=== PATIENT | female | born 1940 | race Caucasian/White ===

== ENCOUNTER 2019-02-23 08:56 | Inpatient (IN) | payer OTHER ==
[~2019-02-23] VITALS: Ht 165.1 cm; Wt 73.9 kg
[~2019-02-23 08:56] MED LIST: HYDR12.5; LISI-209 PO; VERA100C4 PO
[2019-02-23 09:02] VITALS: BP_SYST 153
[2019-02-23] MEDS ORDERED: NS 500 ML IV ONE (09:15)
[2019-02-23 09:38] LABS: BASOPHILS % (AUTO) 0.2 % (0.0-2.0); HEMATOCRIT 44.7 % (36-48); HEMOGLOBIN 15.5 g/dL (12.0-16.0); LYMPHOCYTES # (AUTO) 0.4 K/uL (1.0-5.5); LYMPHOCYTES % (AUTO) 2.5 % (20.5-51.5); MEAN CORPUSCULAR HEMOGLOBIN 32 pg (27-31); MEAN CORPUSCULAR HGB CONC 35 % (32-36); MEAN CORPUSCULAR VOLUME 92 fL (79.0-98.0); MONOCYTES # (AUTO) 1.7 K/uL (0.0-1.0); MONOCYTES % (AUTO) 10.8 % (1.7-9.3); NEUTROPHILS # (AUTO) 13.9 K/uL (1.8-7.7); NEUTROPHILS % (AUTO) 86.5 % (40.0-70.0); PLATELET COUNT (AUTO) 198 K/uL (130-430); RED BLOOD CELL COUNT(AUTO) 4.84 MIL/uL (4.2-6.2); RED CELL DISTRIBUTION WIDTH 12.5 % (9.0-15.0); WHITE BLOOD COUNT (AUTO) 16.1 K/uL (4.8-10.8)
[2019-02-23 09:54] LABS: ANION GAP 12 (5-15); CALCIUM 9.1 mg/dL (8.4-11.0); CHLORIDE 95 mmol/L (98-107); CREATININE 1.33 mg/dL (0.55-1.30); GLUCOSE 214 mg/dL (70-99); POTASSIUM 3.1 mmol/L (3.5-5.1); SODIUM SERUM 130 mmol/L (136-145); UREA NITROGEN, BLOOD 32 mg/dL (8-21)
[2019-02-23 09:57] LABS: INR 1.1 (0.8-1.2); PROTHROMBIN TIME 10.7 SECS (9.5-12.5)
[2019-02-23 09:59] LABS: ALANINE AMINOTRANSFERASE 24 U/L (12-78); ALBUMIN 4.1 g/dL (3.4-4.8); ASPARTATE AMINOTRANSFERASE 42 U/L (10-37); TOTAL BILIRUBIN 2.7 mg/dL (0.0-1.0)
[2019-02-23 10:11] LABS: BILIRUBIN,URINE NEGATIVE (NEGATIVE); BLOOD, URINE 3+ (NEGATIVE); CLARITY/URINE CLEAR (CLEAR); COLOR,URINE YELLOW (YELLOW); GLUCOSE,URINE NEGATIVE (NEGATIVE); KETONES,URINE 2+ (NEGATIVE); LEUKOCYTE ESTERASE ,URINE 1+ (NEGATIVE); NITRITE, URINE POSITIVE (NEGATIVE); PROTEIN URINE 2+ (NEGATIVE); UROBILINOGEN,URINE 0.2 (0.2-1.0)
[2019-02-23] MEDS ORDERED: POTASSIUM CHLORIDE 10 MEQ TAB.PRT.SR PO ONE (10:15)
[2019-02-23] MEDS ORDERED: NACL 0.9% 2,000 ML IV ONE (10:15)
[2019-02-23 10:21] LABS: BACTERIA,URINE MANY /HPF (None Seen); COARSE GRANULAR CASTS,URINE 0-10 /LPF (None Seen)
[2019-02-23] MEDS ORDERED: ASPIRIN 81 MG TAB.CHEW PO ONE (10:30)
[2019-02-23] MEDS ORDERED: LEVOFLOXACIN 500 MG/D5W 100 ML IV ONE (10:30)
[2019-02-23] MEDS ORDERED: ENOXAPARIN SODIUM 80 MG/0.8 ML SYRINGE SUBCUT ONE (10:30)
[2019-02-23 11:13] VITALS: BP_SYST 136
[2019-02-23] MEDS ORDERED: FLU VACC TS2019(65UP)/MF59C/PF 45 MCG/0.5 ML SYRINGE I.M. PRN (11:30)
[2019-02-23] MEDS ORDERED: METOPROLOL TARTRATE 25 MG TABLET PO ONE (12:00)
[2019-02-23 12:45] VITALS: BP_SYST 136
[2019-02-23] MEDS ORDERED: *HEPARIN PER PHARMACY XX ONE (12:45)
[2019-02-23] MEDS ORDERED: ASPIRIN 325 MG TABLET (ECOTRIN) PO ONE (12:45)
[2019-02-23] MEDS ORDERED: HEPARIN SODIUM,PORCINE 5000 UNITS/ML VIAL IVP ONE (13:00)
[2019-02-23] MEDS ORDERED: HEPARIN SODIUM,PORCINE 3000 UNITS/0.6 ML BOLUS IVP PRN (13:00)
[2019-02-23] MEDS ORDERED: HEPARIN SODIUM,PORCINE 2000 UNITS/0.4 ML BOLUS IVP PRN (13:00)
[2019-02-23] MEDS: NACL 0.9% 1,000 ML IV SCH (13:20)
[2019-02-23] MEDS: HEPARIN 25,000 UNITS in 250 ML PREMIX IV PRN (13:45)
[2019-02-23 15:39] LABS: CKMB RELATIVE INDEX 0.6 (0.0-2.9); CREATINE KINASE MB 8.7 ng/mL (0-3.6)
[2019-02-23 16:35] VITALS: BP_SYST 137
[2019-02-23 19:37] LABS: BASOPHILS % (AUTO) 0.2 % (0.0-2.0); HEMATOCRIT 42.1 % (36-48); HEMOGLOBIN 14.7 g/dL (12.0-16.0); LYMPHOCYTES # (AUTO) 0.5 K/uL (1.0-5.5); LYMPHOCYTES % (AUTO) 2.6 % (20.5-51.5); MEAN CORPUSCULAR HEMOGLOBIN 33 pg (27-31); MEAN CORPUSCULAR HGB CONC 35 % (32-36); MEAN CORPUSCULAR VOLUME 93 fL (79.0-98.0); MONOCYTES # (AUTO) 1.8 K/uL (0.0-1.0); MONOCYTES % (AUTO) 9.5 % (1.7-9.3); NEUTROPHILS # (AUTO) 16.9 K/uL (1.8-7.7); PLATELET COUNT (AUTO) 187 K/uL (130-430); RED BLOOD CELL COUNT(AUTO) 4.53 MIL/uL (4.2-6.2); RED CELL DISTRIBUTION WIDTH 12.6 % (9.0-15.0); WHITE BLOOD COUNT (AUTO) 19.2 K/uL (4.8-10.8)
[2019-02-23 19:57] VITALS: BP_SYST 138
[2019-02-23 20:09] LABS: ALANINE AMINOTRANSFERASE 23 U/L (12-78); ALBUMIN 3.2 g/dL (3.4-4.8); ANION GAP 8 (5-15); ASPARTATE AMINOTRANSFERASE 50 U/L (10-37); CHLORIDE 101 mmol/L (98-107); CREATININE 1.13 mg/dL (0.55-1.30); GLUCOSE 166 mg/dL (70-99); POTASSIUM 3.2 mmol/L (3.5-5.1); SODIUM SERUM 133 mmol/L (136-145); TOTAL BILIRUBIN 2.4 mg/dL (0.0-1.0); UREA NITROGEN, BLOOD 30 mg/dL (8-21)
[2019-02-23 20:21] LABS: NEUTROPHILS % (AUTO) 87.7 % (40.0-70.0)
[2019-02-23] MEDS: METOPROLOL TARTRATE 25 MG TABLET PO SCH (21:23)
[2019-02-23] MEDS ORDERED: BIMA2.5D5 OP (23:33)
[2019-02-24 06:33] LABS: BASOPHILS % (AUTO) 0.1 % (0.0-2.0); HEMATOCRIT 40.3 % (36-48); HEMOGLOBIN 13.9 g/dL (12.0-16.0); LYMPHOCYTES # (AUTO) 0.4 K/uL (1.0-5.5); LYMPHOCYTES % (AUTO) 2.3 % (20.5-51.5); MEAN CORPUSCULAR HEMOGLOBIN 32 pg (27-31); MEAN CORPUSCULAR HGB CONC 35 % (32-36); MEAN CORPUSCULAR VOLUME 94 fL (79.0-98.0); MONOCYTES # (AUTO) 1.6 K/uL (0.0-1.0); MONOCYTES % (AUTO) 9.4 % (1.7-9.3); NEUTROPHILS # (AUTO) 15.1 K/uL (1.8-7.7); NEUTROPHILS % (AUTO) 88.2 % (40.0-70.0); PLATELET COUNT (AUTO) 171 K/uL (130-430); RED BLOOD CELL COUNT(AUTO) 4.29 MIL/uL (4.2-6.2); RED CELL DISTRIBUTION WIDTH 12.7 % (9.0-15.0); WHITE BLOOD COUNT (AUTO) 17.2 K/uL (4.8-10.8)
[2019-02-24 07:09] LABS: ANION GAP 12 (5-15); CALCIUM 8.8 mg/dL (8.4-11.0); CHLORIDE 102 mmol/L (98-107); CREATININE 1.13 mg/dL (0.55-1.30); GLUCOSE 145 mg/dL (70-99); SODIUM SERUM 137 mmol/L (136-145); UREA NITROGEN, BLOOD 29 mg/dL (8-21)
[2019-02-24 07:19] LABS: ALANINE AMINOTRANSFERASE 26 U/L (12-78); ASPARTATE AMINOTRANSFERASE 55 U/L (10-37); TOTAL BILIRUBIN 1.6 mg/dL (0.0-1.0)
[2019-02-24] MEDS: ASPIRIN 325 MG TABLET (ECOTRIN) PO SCH (08:28)
[2019-02-24] MEDS: NACL 0.9% 1,000 ML IV SCH ×2 (08:34→12:54)
[2019-02-24] MEDS: METOPROLOL TARTRATE 25 MG TABLET PO SCH ×2 (08:34→20:28)
[2019-02-24] MEDS ORDERED: VERAPAMIL HCL 100 MG PO SCH (09:00)
[2019-02-24] MEDS ORDERED: IOHEXOL 350 mgI/mL, 150 ML INFUS..BTL IV ONE (11:13)
[2019-02-24] MEDS ORDERED: POTASSIUM CHLORIDE 20 MEQ TAB.PRT.SR PO ONE (11:30)
[2019-02-24] MEDS ORDERED: PIPERACILLIN/TAZO 3.375/DEX-IS 50 ML IV ONE (11:30)
[2019-02-24 12:22] VITALS: BP_SYST 141
[2019-02-24] MEDS: HEPARIN 25,000 UNITS in 250 ML PREMIX IV PRN (12:58)
[2019-02-24] MEDS ORDERED: ALBUTEROL SULFATE 0.083% 2.5 MG/3 ML VIAL.NEB INH PRN (13:15)
[2019-02-24] MEDS: ACETAMINOPHEN 325 MG TABLET PO PRN (14:17)
[2019-02-24 16:30] VITALS: BP_SYST 100
[2019-02-24] MEDS: PIPERACILLIN/TAZO 2.25G/DEX-IS 50 ML IV SCH (16:58)
[2019-02-24 20:00] VITALS: BP_SYST 94
[2019-02-24] MEDS: LUMIGAN 0.01% OP SCH (20:29)
[2019-02-24] MEDS ORDERED: BIMATOPROST 0.01%, 2.5 ML EYE DROPS OP SCH (21:00)
[2019-02-25] VITALS (7 sets, daily range): BP systolic 114–140
[2019-02-25] MEDS: PIPERACILLIN/TAZO 2.25G/DEX-IS 50 ML IV SCH ×3 (00:12→15:59)
[2019-02-25 05:52] LABS: ALANINE AMINOTRANSFERASE 99 U/L (12-78); ALBUMIN 2.8 g/dL (3.4-4.8); ANION GAP 10 (5-15); ASPARTATE AMINOTRANSFERASE 102 U/L (10-37); CALCIUM 8.6 mg/dL (8.4-11.0); CHLORIDE 107 mmol/L (98-107); CREATININE 1.12 mg/dL (0.55-1.30); GLUCOSE 141 mg/dL (70-99); POTASSIUM 3.4 mmol/L (3.5-5.1); SODIUM SERUM 141 mmol/L (136-145); TOTAL BILIRUBIN 1.2 mg/dL (0.0-1.0); UREA NITROGEN, BLOOD 29 mg/dL (8-21)
[2019-02-25 06:28] LABS: BASOPHILS % (AUTO) 0.1 % (0.0-2.0); EOSINOPHILS % (AUTO) 0.1 % (0.0-4.0); HEMATOCRIT 36.3 % (36-48); HEMOGLOBIN 12.6 g/dL (12.0-16.0); LYMPHOCYTES # (AUTO) 0.4 K/uL (1.0-5.5); LYMPHOCYTES % (AUTO) 3.6 % (20.5-51.5); MEAN CORPUSCULAR HEMOGLOBIN 33 pg (27-31); MEAN CORPUSCULAR HGB CONC 35 % (32-36); MEAN CORPUSCULAR VOLUME 94 fL (79.0-98.0); MONOCYTES # (AUTO) 0.9 K/uL (0.0-1.0); MONOCYTES % (AUTO) 7.1 % (1.7-9.3); NEUTROPHILS # (AUTO) 10.7 K/uL (1.8-7.7); NEUTROPHILS % (AUTO) 89.1 % (40.0-70.0); PLATELET COUNT (AUTO) 155 K/uL (130-430); RED BLOOD CELL COUNT(AUTO) 3.86 MIL/uL (4.2-6.2); RED CELL DISTRIBUTION WIDTH 12.8 % (9.0-15.0)
[2019-02-25] MEDS: ASPIRIN 325 MG TABLET (ECOTRIN) PO SCH (09:05)
[2019-02-25] MEDS: METOPROLOL TARTRATE 25 MG TABLET PO SCH (09:06)
[2019-02-25] MEDS: ACETAMINOPHEN 325 MG TABLET PO PRN (09:16)
[2019-02-25] MEDS ORDERED: KCL 20 mEq in 100 mL (PREMIX) 100 ML IV ONE (10:00)
[2019-02-25] MEDS ORDERED: ENOXAPARIN SODIUM 40 MG/0.4 ML SYRINGE SUBCUT ONE (11:15)
[2019-02-25] MEDS: NACL 0.9% 1,000 ML IV SCH (16:00)
[2019-02-25] MEDS: HYDROcodone/ACETAMIN 5-325 MG TAB (NORCO/ VICODIN) PO PRN (16:17)
[2019-02-25] MEDS: LUMIGAN 0.01% OP SCH (21:00)
[2019-02-26 01:23] VITALS: BP_SYST 139
[2019-02-26] MEDS: PIPERACILLIN/TAZO 2.25G/DEX-IS 50 ML IV SCH ×5 (03:35→18:36)
[2019-02-26] MEDS: METOPROLOL TARTRATE 25 MG TABLET PO SCH ×3 (03:38→22:06)
[2019-02-26] MEDS: NACL 0.9% 1,000 ML IV SCH ×2 (03:41→05:00)
[2019-02-26 08:00] VITALS: BP_SYST 130
[2019-02-26] MEDS ORDERED: ENOXAPARIN SODIUM 40 MG/0.4 ML SYRINGE SUBCUT SCH (09:00)
[2019-02-26] MEDS ORDERED: ASPIRIN 325 MG TABLET (ECOTRIN) PO SCH (09:00)
[2019-02-26 11:57] VITALS: BP_SYST 129
[2019-02-26] MEDS ORDERED: POTASSIUM CHLORIDE 40 MEQ in NS 250 ML IV ONE (14:30)
[2019-02-26 16:51] VITALS: BP_SYST 137
[2019-02-26 20:06] VITALS: BP_SYST 149
[2019-02-26] MEDS: HYDROcodone/ACETAMIN 5-325 MG TAB (NORCO/ VICODIN) PO PRN ×2 (22:02→22:04)
[2019-02-26] MEDS: LUMIGAN 0.01% OP SCH (22:07)
[2019-02-27] VITALS (7 sets, daily range): BP systolic 125–151
[2019-02-27] MEDS: PIPERACILLIN/TAZO 2.25G/DEX-IS 50 ML IV SCH ×5 (06:13→22:59)
[2019-02-27 07:54] LABS: BASOPHILS % (AUTO) 0.2 % (0.0-2.0); EOSINOPHILS % (AUTO) 0.1 % (0.0-4.0); HEMATOCRIT 37.8 % (36-48); HEMOGLOBIN 12.9 g/dL (12.0-16.0); LYMPHOCYTES # (AUTO) 0.7 K/uL (1.0-5.5); LYMPHOCYTES % (AUTO) 8.1 % (20.5-51.5); MEAN CORPUSCULAR HEMOGLOBIN 33 pg (27-31); MEAN CORPUSCULAR HGB CONC 34 % (32-36); MEAN CORPUSCULAR VOLUME 96 fL (79.0-98.0); MONOCYTES # (AUTO) 0.7 K/uL (0.0-1.0); MONOCYTES % (AUTO) 8.4 % (1.7-9.3); NEUTROPHILS # (AUTO) 7.5 K/uL (1.8-7.7); NEUTROPHILS % (AUTO) 83.2 % (40.0-70.0); PLATELET COUNT (AUTO) 187 K/uL (130-430); RED BLOOD CELL COUNT(AUTO) 3.93 MIL/uL (4.2-6.2); RED CELL DISTRIBUTION WIDTH 12.8 % (9.0-15.0); WHITE BLOOD COUNT (AUTO) 8.9 K/uL (4.8-10.8)
[2019-02-27] MEDS: METOPROLOL TARTRATE 25 MG TABLET PO SCH ×2 (08:22→21:00)
[2019-02-27 09:20] LABS: ANION GAP 11 (5-15); CALCIUM 8.7 mg/dL (8.4-11.0); CHLORIDE 108 mmol/L (98-107); CREATININE 1.14 mg/dL (0.55-1.30); GLUCOSE 115 mg/dL (70-99); POTASSIUM 3.8 mmol/L (3.5-5.1); SODIUM SERUM 142 mmol/L (136-145); UREA NITROGEN, BLOOD 27 mg/dL (8-21)
[2019-02-27 09:27] LABS: ALANINE AMINOTRANSFERASE 115 U/L (12-78); ASPARTATE AMINOTRANSFERASE 49 U/L (10-37); TOTAL BILIRUBIN 1.2 mg/dL (0.0-1.0)
[2019-02-27] MEDS: NACL 0.9% 1,000 ML IV SCH (17:12)
[2019-02-27] MEDS: LUMIGAN 0.01% OP SCH (21:00)
[2019-02-28] VITALS (7 sets, daily range): BP systolic 118–144
[2019-02-28 05:59] LABS: BASOPHILS % (AUTO) 0.1 % (0.0-2.0); EOSINOPHILS # (AUTO) 0.1 K/uL (0.0-0.4); EOSINOPHILS % (AUTO) 0.8 % (0.0-4.0); HEMATOCRIT 36.9 % (36-48); HEMOGLOBIN 12.7 g/dL (12.0-16.0); LYMPHOCYTES # (AUTO) 1.1 K/uL (1.0-5.5); LYMPHOCYTES % (AUTO) 13.3 % (20.5-51.5); MEAN CORPUSCULAR HEMOGLOBIN 33 pg (27-31); MEAN CORPUSCULAR HGB CONC 34 % (32-36); MEAN CORPUSCULAR VOLUME 95 fL (79.0-98.0); MONOCYTES # (AUTO) 1.1 K/uL (0.0-1.0); MONOCYTES % (AUTO) 12.7 % (1.7-9.3); NEUTROPHILS # (AUTO) 6.2 K/uL (1.8-7.7); NEUTROPHILS % (AUTO) 73.1 % (40.0-70.0); PLATELET COUNT (AUTO) 189 K/uL (130-430); RED BLOOD CELL COUNT(AUTO) 3.88 MIL/uL (4.2-6.2); RED CELL DISTRIBUTION WIDTH 12.4 % (9.0-15.0); WHITE BLOOD COUNT (AUTO) 8.5 K/uL (4.8-10.8)
[2019-02-28] MEDS: PIPERACILLIN/TAZO 2.25G/DEX-IS 50 ML IV SCH ×4 (06:18→23:30)
[2019-02-28 06:34] LABS: PROTHROMBIN TIME 10.4 SECS (9.5-12.5)
[2019-02-28 06:57] LABS: ALANINE AMINOTRANSFERASE 86 U/L (12-78); ALBUMIN 2.6 g/dL (3.4-4.8); ANION GAP 8 (5-15); ASPARTATE AMINOTRANSFERASE 29 U/L (10-37); CALCIUM 8.1 mg/dL (8.4-11.0); CHLORIDE 106 mmol/L (98-107); CREATININE 1.08 mg/dL (0.55-1.30); GLUCOSE 106 mg/dL (70-99); POTASSIUM 3.6 mmol/L (3.5-5.1); SODIUM SERUM 141 mmol/L (136-145); TOTAL BILIRUBIN 0.8 mg/dL (0.0-1.0); UREA NITROGEN, BLOOD 26 mg/dL (8-21)
[2019-02-28] MEDS: METOPROLOL TARTRATE 25 MG TABLET PO SCH ×2 (08:19→22:13)
[2019-02-28] MEDS: ATORVASTATIN 20 MG TABLET PO SCH (08:20)
[2019-02-28] MEDS: HYDROcodone/ACETAMIN 5-325 MG TAB (NORCO/ VICODIN) PO PRN ×2 (08:23→16:01)
[2019-02-28] MEDS: NACL 0.9% 1,000 ML IV SCH (16:02)
[2019-02-28] MEDS: LUMIGAN 0.01% OP SCH (22:16)
[2019-03-01 00:32] VITALS: BP_SYST 146
[2019-03-01] MEDS: PIPERACILLIN/TAZO 2.25G/DEX-IS 50 ML IV SCH (05:34)
[2019-03-01 06:53] VITALS: BP_SYST 126
[2019-03-01 10:00] VITALS: BP_SYST 136
[2019-03-01] MEDS: METOPROLOL TARTRATE 25 MG TABLET PO SCH ×2 (10:01→21:58)
[2019-03-01] MEDS: ATORVASTATIN 20 MG TABLET PO SCH (10:02)
[2019-03-01] MEDS: NACL 0.9% 1,000 ML IV SCH (11:30)
[2019-03-01 12:40] VITALS: BP_SYST 128
[2019-03-01 16:20] VITALS: BP_SYST 133
[2019-03-01 20:00] VITALS: BP_SYST 136
[2019-03-01] MEDS: LUMIGAN 0.01% OP SCH (22:02)
[2019-03-02] MEDS: HYDROcodone/ACETAMIN 5-325 MG TAB (NORCO/ VICODIN) PO PRN (00:54)
[2019-03-02] MEDS: NACL 0.9% 1,000 ML IV SCH (00:55)
[2019-03-02 02:42] VITALS: BP_SYST 122
[2019-03-02 08:03] VITALS: BP_SYST 136
[2019-03-02] MEDS: ATORVASTATIN 20 MG TABLET PO SCH (09:40)
[2019-03-02] MEDS: METOPROLOL TARTRATE 25 MG TABLET PO SCH (09:42)
[2019-03-02] MEDS ORDERED: GADOPENTETATE DIMEGLUMINE 15 ML VIAL IV ONE (10:39)
[2019-03-02 12:27] VITALS: BP_SYST 130
[2019-03-02] MEDS: ACETAMINOPHEN 325 MG TABLET PO PRN (13:06)
[2019-03-02 16:38] VITALS: BP_SYST 125
[2019-03-02 17:38] VITALS: BP_SYST 125
== END 2019-03-02 19:45 | DRG 871 ==
LOC: SED 08:56 → STU 10:36
PROVIDERS: ADMIT Internal Medicine Hospice and Palliative Medicine; ATTEND Internal Medicine Hospice and Palliative Medicine
DX: A41.9 Sepsis, unspecified organism (principal); J96.01 Acute respiratory failure with hypoxia; I61.5 Nontraumatic intracerebral hemorrhage, intraventricular; I21.4 Non-ST elevation (NSTEMI) myocardial infarction; N39.0 Urinary tract infection, site not specified; E87.1 Hypo-osmolality and hyponatremia; G93.40 Encephalopathy, unspecified; M62.82 Rhabdomyolysis; E78.5 Hyperlipidemia, unspecified; E87.6 Hypokalemia; F17.210 Nicotine dependence, cigarettes, uncomplicated; I10 Essential (primary) hypertension; J44.9 Chronic obstructive pulmonary disease, unspecified; Z96.652 Presence of left artificial knee joint; G89.29 Other chronic pain; M54.9 Dorsalgia, unspecified; Z96.643 Presence of artificial hip joint, bilateral; B96.20 Unspecified Escherichia coli [E. coli] as the cause of diseases classified elsewhere; Z90.710 Acquired absence of both cervix and uterus; Z86.718 Personal history of other venous thrombosis and embolism; Z86.711 Personal history of pulmonary embolism; Z79.899 Other long term (current) drug therapy
CPT/HCPCS: 36415; 36600; 70450-TC; 70551; 70553; 71045; 71260-TC; 78580-TC; 80053; 81000-TC; 82550-TC; 82553-TC; 82803-TC; 83605; 84484; 85025; 85610-TC; 85730-TC; 87040-TC; 87086; 87186-TC; 92610-GN; 93005; 93306; 93970; 94640; 95816; 96361; 96365; 97110-GP; 97116-GP; 97530-GP; 99285; A9540; A9579; G0378; J1644; J1650; J1956; J2543; J3480; J7030; J7040; J7050; J7613; Q9967

== ENCOUNTER 2019-04-15 14:45 | Inpatient (IN) | payer OTHER ==
[~2019-04-15] VITALS: Ht 170.2 cm; Wt 68.9 kg
[2019-04-15 14:45] VITALS: BP_SYST 128
[~2019-04-15 14:45] MED LIST changes: +BIMA2.5D5 OP; -HYDR12.5; -LISI-209 PO; -VERA100C4 PO
--- NOTE | 2019-04-15 14:45 | NUR ---
Patient to ER bed 3 to gown for evaluation. Side rails up.
--- NOTE | 2019-04-15 14:50 | NUR ---
Pt brought to ER with complaints of lower abd pain and lower extremity swelling. Pt currently in bed comfortable, no distress, on ekg monitor.
--- NOTE | 2019-04-15 15:00 | NUR ---
ER at bedside examining patient.
[2019-04-15 15:23] LABS: BASOPHILS % (AUTO) 0.6 % (0.0-2.0); EOSINOPHILS # (AUTO) 0.1 K/uL (0.0-0.4); EOSINOPHILS % (AUTO) 0.7 % (0.0-4.0); HEMATOCRIT 36.7 % (36-48); HEMOGLOBIN 12.6 g/dL (12.0-16.0); LYMPHOCYTES # (AUTO) 0.8 K/uL (1.0-5.5); LYMPHOCYTES % (AUTO) 10.9 % (20.5-51.5); MEAN CORPUSCULAR HEMOGLOBIN 33 pg (27-31); MEAN CORPUSCULAR HGB CONC 34 % (32-36); MEAN CORPUSCULAR VOLUME 95 fL (79.0-98.0); MONOCYTES # (AUTO) 0.6 K/uL (0.0-1.0); MONOCYTES % (AUTO) 8.2 % (1.7-9.3); NEUTROPHILS # (AUTO) 5.9 K/uL (1.8-7.7); NEUTROPHILS % (AUTO) 79.6 % (40.0-70.0); PLATELET COUNT (AUTO) 371 K/uL (130-430); RED BLOOD CELL COUNT(AUTO) 3.87 MIL/uL (4.2-6.2); RED CELL DISTRIBUTION WIDTH 14.6 % (9.0-15.0); WHITE BLOOD COUNT (AUTO) 7.4 K/uL (4.8-10.8)
--- NOTE | 2019-04-15 15:25 | NUR ---
EKG performed at BS. Physician given copy of EKG for review.
--- NOTE | 2019-04-15 15:30 | NUR ---
Chest xray completed at bedside
[2019-04-15 15:37] LABS: INR 0.9 (0.8-1.2); PROTHROMBIN TIME 9.5 SECS (9.5-12.5)
[2019-04-15 15:45] LABS: ANION GAP 5 (5-15); CALCIUM 8.8 mg/dL (8.4-11.0); CHLORIDE 92 mmol/L (98-107); CREATININE 0.59 mg/dL (0.55-1.30); GLUCOSE 102 mg/dL (70-99); SODIUM SERUM 128 mmol/L (136-145); UREA NITROGEN, BLOOD 11 mg/dL (8-21)
[2019-04-15 15:51] LABS: ALANINE AMINOTRANSFERASE 80 U/L (12-78); ALBUMIN 2.9 g/dL (3.4-4.8); ASPARTATE AMINOTRANSFERASE 26 U/L (10-37); TOTAL BILIRUBIN 0.8 mg/dL (0.0-1.0)
--- NOTE | 2019-04-15 17:00 | NUR ---
# 20 gauge angiocath placed to RAC Use of asceptic technique. Opsite placed over site. Blood return noted. Blood for lab drawn from site. Flushed with 10 cc of normal saline. No evidence of infiltration noted. Patient tolerated well.
--- NOTE | 2019-04-15 17:01 | NUR ---
2nd lactic acid collected and sent to lab
--- NOTE | 2019-04-15 17:15 | NUR ---
Urine specimen collected via straight cath and analyzed in ER. Results given to ER .
[2019-04-15] MEDS ORDERED: TRAM-350 PO (17:47)
[2019-04-15] MEDS ORDERED: BIMA2.5D5 OP (17:47)
[2019-04-15] MEDS ORDERED: OMEP20CA11 PO (17:47)
[2019-04-15] MEDS ORDERED: LIP40 PO (17:47)
--- NOTE | 2019-04-15 18:30 | NUR ---
currently waiting for a Med Surg bed.
[2019-04-15] MEDS ORDERED: ENOXAPARIN SODIUM 80 MG/0.8 ML SYRINGE SUBCUT ONE ×3 (19:00→19:30)
--- NOTE | 2019-04-15 19:15 | NUR ---
report given to Jefry NAVARRO.
--- NOTE | 2019-04-15 20:00 | NUR ---
Pt resting comfortably in ED bed. Pt family left bedside.
[2019-04-15] MEDS ORDERED: *LOVENOX 1MG/KG Q12H/PHARMACY XX SCH (21:00)
--- NOTE | 2019-04-15 21:00 | NUR ---
Patient will be admitted to care of / [facility]. Admitted to Med/Surg unit. Will go to room 102B. Belongings list completed. Complete and up to date summary report printed. SBAR report to be given at bedside with opportunity for questions.
--- NOTE | 2019-04-15 21:00 | NUR ---
Report Given to MELANIE Fields
--- NOTE | 2019-04-15 21:00 | NUR ---
[facility] IV present no sign or symptom of infiltration.
--- NOTE | 2019-04-15 21:30 | NUR ---
ADMISSION: The patient, DION HANNA, 78 y/o, F admitted by RAFAEL MAGAÑA MD, with diagnosis of dvt on LLE.
[2019-04-15 21:45] VITALS: BP_SYST 139
--- NOTE | 2019-04-15 21:52 | NUR ---
ADMISSION NOTES: called ER and got report from nurse Capps. pt. was brought in prior to report, charge nurse Nneka received pt. pt. awake, alert but disoriented when checked. VS checked. HS care being given by IRENA Scanlon. pt. able to help turn to sides and move her arm and leg. pt. left leg swollen with DX DVT and also c/o abdominal pain due to constipation, reported had CT of abdomen and have large amts. of stool. IV lock opn rt. arm. on fall risk precautions. call light within reach. noted coccyx/anal area reddened, Z ana cream applied. unable to get information at his time, will check medical records, son already went home from ER.
--- NOTE | 2019-04-15 23:19 | NUR ---
NOTES; pt. sleeping when checked. no acute distress.
--- NOTE | 2019-04-15 23:32 | NUR ---
Carly Wynne s/w Saloni
[2019-04-15] MEDS ORDERED: ONDANSETRON HCL 4 MG/2 ML VIAL IVP PRN (23:45)
[2019-04-15] MEDS ORDERED: ALBUTEROL SULFATE 0.083% 2.5 MG/3 ML VIAL.NEB INH PRN (23:45)
[2019-04-15] MEDS ORDERED: HYDROcodone/ACETAMIN 10-325 MG TAB PO PRN (23:45)
[2019-04-15] MEDS ORDERED: ACETAMINOPHEN 325 MG TABLET PO PRN (23:45)
[2019-04-15] MEDS ORDERED: HYDROcodone/ACETAMIN 5-325 MG TAB (NORCO/ VICODIN) PO PRN (23:45)
[2019-04-15 23:49] VITALS: BP_SYST 102
[2019-04-16] VITALS: BP_SYST 120
[2019-04-16] MEDS ORDERED: POTASSIUM CHLORIDE 20 MEQ TAB.PRT.SR PO ONE ×2 (00:15)
--- NOTE | 2019-04-16 00:15 | NUR ---
NOTES: Dr. Wynne returned the call, made her aware of low Sodium and low Potassium (3.0) only ordered Potassium, no IVF.
--- NOTE | 2019-04-16 02:00 | NUR ---
NOTES: pt. awakened, and potassium givewn with apple sauce and tolerated fairly, went back to sleep.
--- NOTE | 2019-04-16 04:30 | NUR ---
NOTES: pt. repositioned. no complaints noted, back to sleep. continue to monitor.
--- NOTE | 2019-04-16 06:00 | NUR ---
NOTES: awakened, incontinent of urine, partial am and eusebia care done. repositioned. IV lock on rt. antecubital. some pain noted on left leg when move, keep elevated with pillow. fall risk precautions, bed alarm on.
--- NOTE | 2019-04-16 06:57 | NUR ---
CLOSING NOTES; pt. went back to sleep. no acute distress. IV lock intact. left leg elevated with pillow. needs attended. on fall risk precautions, bed alarm on. for further care and assistance. call light within reach. remain disoriented. will endorase to day shift
[2019-04-16 07:21] LABS: BASOPHILS # (AUTO) 0.1 K/uL (0.0-0.2); EOSINOPHILS # (AUTO) 0.1 K/uL (0.0-0.4); EOSINOPHILS % (AUTO) 1.2 % (0.0-4.0); HEMATOCRIT 33.6 % (36-48); HEMOGLOBIN 11.7 g/dL (12.0-16.0); LYMPHOCYTES # (AUTO) 0.8 K/uL (1.0-5.5); LYMPHOCYTES % (AUTO) 14.8 % (20.5-51.5); MEAN CORPUSCULAR HEMOGLOBIN 33 pg (27-31); MEAN CORPUSCULAR HGB CONC 35 % (32-36); MEAN CORPUSCULAR VOLUME 95 fL (79.0-98.0); MONOCYTES # (AUTO) 0.7 K/uL (0.0-1.0); MONOCYTES % (AUTO) 11.6 % (1.7-9.3); NEUTROPHILS % (AUTO) 71.4 % (40.0-70.0); PLATELET COUNT (AUTO) 334 K/uL (130-430); RED BLOOD CELL COUNT(AUTO) 3.54 MIL/uL (4.2-6.2); RED CELL DISTRIBUTION WIDTH 14.8 % (9.0-15.0); WHITE BLOOD COUNT (AUTO) 5.6 K/uL (4.8-10.8)
--- NOTE | 2019-04-16 07:50 | NUR ---
Nurse Notes: report from the night nurse Sabine Ratliff RN, patient is resting in bed. No complaints of pain given, No complaints of any shortness of breath.
[2019-04-16 08:17] LABS: ALANINE AMINOTRANSFERASE 63 U/L (12-78); ALBUMIN 2.6 g/dL (3.4-4.8); ANION GAP 5 (5-15); ASPARTATE AMINOTRANSFERASE 20 U/L (10-37); CALCIUM 8.9 mg/dL (8.4-11.0); CHLORIDE 98 mmol/L (98-107); CREATININE 0.67 mg/dL (0.55-1.30); GLUCOSE 96 mg/dL (70-99); POTASSIUM 3.5 mmol/L (3.5-5.1); SODIUM SERUM 134 mmol/L (136-145); TOTAL BILIRUBIN 0.7 mg/dL (0.0-1.0); UREA NITROGEN, BLOOD 10 mg/dL (8-21)
[2019-04-16 08:48] VITALS: BP_SYST 129
[2019-04-16] MEDS ORDERED: BIMATOPROST 0.01%, 2.5 ML EYE DROPS OP SCH (09:00)
[2019-04-16] MEDS ORDERED: LATANOPROST 2.5 ML DROPS (XALATAN) OP SCH (09:00)
[2019-04-16] MEDS ORDERED: ENOXAPARIN SODIUM 80 MG/0.8 ML SYRINGE SUBCUT SCH ×2 (09:00)
--- NOTE | 2019-04-16 09:32 | NUR ---
Nurse Notes: Dr Hicks was called with elevated troponin 0.173, will reach sash installer Dr Tyrell Snowden, for consult. Addendum: 04/16/19 at 1337 by Linda children's aide charted on the wrong patient.
[2019-04-16] MEDS: PANTOPRAZOLE SODIUM 40 MG TAB PO SCH (10:42)
--- NOTE | 2019-04-16 10:51 | NUR ---
Nutrition Update Jethro Scale 15 noted. Pt admitted for DVT. Diet: cardiac BMI: 24 kg/m2 RD to follow per nutrition care standards.
[2019-04-16 11:16] VITALS: BP_SYST 124
--- NOTE | 2019-04-16 13:48 | NUR ---
Nurse Notes: pharmacy was called, if the lovenox 1mg/kg, should the dose be 70 mg, 80 mg was given earlier. chemical waste management technician to notified the pharmacist.
[2019-04-16 15:19] VITALS: BP_SYST 117
--- NOTE | 2019-04-16 19:40 | NUR ---
Nurse Notes: report given to the night nurse Roland NAVARRO, Patient is resting in bed. No complaints of any shortness of breath. No request for pain medications.
--- NOTE | 2019-04-16 20:00 | NUR ---
Pt awake, alert, pleasant upon approach and cooperative. Resting in bed w left leg on pillow. L Leg swollen.
[2019-04-16] MEDS: ATORVASTATIN 20 MG TABLET PO SCH (21:14)
[2019-04-16] MEDS: ENOXAPARIN SODIUM 80 MG/0.8 ML SYRINGE SUBCUT SCH (21:38)
--- NOTE | 2019-04-16 22:00 | NUR ---
pt cooperative w treatment regimen.
[2019-04-16] MEDS: LATANOPROST 2.5 ML DROPS (XALATAN) OP SCH (23:37)
--- NOTE | 2019-04-17 00:03 | NUR ---
Pt c/o pain to L Lower Extremity. Pt medicated as per EMar.
--- NOTE | 2019-04-17 00:30 | NUR ---
Pain mgt effective. pt relieve of pain. No adverse s/sx. pt resting comfortably.
[2019-04-17 00:44] VITALS: BP_SYST 111
--- NOTE | 2019-04-17 02:00 | NUR ---
pt cont to be w/o c/o pain or discomfort. pt sleeping well. call light in reach.
--- NOTE | 2019-04-17 07:30 | NUR ---
Opening note patient resting in bed at this time, A/ox2, no complaints of pain. IV patent, and intact, no infiltration noted. No SOB. left leg kept elevated using pillows. On safety and aspiration precautions, HOB kept elevated, 3 side rails up, call light within reach, bed alarm on. Patient in stable condition. will continue to monitor.
[2019-04-17 08:00] VITALS: BP_SYST 131
[2019-04-17] MEDS: PANTOPRAZOLE SODIUM 40 MG TAB PO SCH (08:20)
[2019-04-17] MEDS: ENOXAPARIN SODIUM 80 MG/0.8 ML SYRINGE SUBCUT SCH ×2 (08:25→22:17)
--- NOTE | 2019-04-17 09:00 | NUR ---
Medications All morning medications given as ordered. no adverse side effects noted. No nausea, no vomiting.
[2019-04-17 11:22] VITALS: BP_SYST 106
[2019-04-17] MEDS: cefTRIAXone 1 GM in D5W 50 ML IV SCH (12:09)
--- NOTE | 2019-04-17 12:21 | NUR ---
Lunch patient sitting up in bed at this time, eating lunch, tolerating well. No nausea, no vomiting noted.
--- NOTE | 2019-04-17 14:05 | NUR ---
IV pulled out. Patient pulled out IV. unable to start IV at this time. Will attempt again at a lter time.
[2019-04-17 15:10] VITALS: BP_SYST 121
--- NOTE | 2019-04-17 15:50 | NUR ---
new IV site New IV inserted on left hand gauge 22. IV patent, intact. no infiltration noted.
--- NOTE | 2019-04-17 18:04 | NUR ---
closing note Patient resting in bed at this time, A/ox2, no complaints of pain. IV patent, and intact, no infiltration noted. No SOB. left leg kept elevated using pillows. Reminded patient we need urine sample. Patient verbalized understanding. will endorse to shift boss. On safety and aspiration precautions, HOB kept elevated, 3 side rails up, call light within reach, bed alarm on. Patient in stable condition. all needs met.
--- NOTE | 2019-04-17 19:30 | NUR ---
start of shift note: report received from day shift RN. pt condition stable. pt awake, alert, confused. pt ate her ice cream, milk, some coffee. remainder of meal appears untouched. pt incontinent and uses diapers.
[2019-04-17] MEDS: ATORVASTATIN 20 MG TABLET PO SCH (22:21)
[2019-04-17] MEDS: LATANOPROST 2.5 ML DROPS (XALATAN) OP SCH (22:21)
--- NOTE | 2019-04-17 22:48 | NUR ---
pt alert, cooperative, and in no apparent distress. pt compliant with medication regimen.
[2019-04-18 00:18] VITALS: BP_SYST 126
[2019-04-18 07:44] LABS: BASOPHILS # (AUTO) 0.1 K/uL (0.0-0.2); BASOPHILS % (AUTO) 1.3 % (0.0-2.0); EOSINOPHILS # (AUTO) 0.1 K/uL (0.0-0.4); EOSINOPHILS % (AUTO) 1.9 % (0.0-4.0); HEMATOCRIT 32.2 % (36-48); HEMOGLOBIN 11.3 g/dL (12.0-16.0); MEAN CORPUSCULAR HEMOGLOBIN 34 pg (27-31); MEAN CORPUSCULAR HGB CONC 35 % (32-36); MEAN CORPUSCULAR VOLUME 96 fL (79.0-98.0); MONOCYTES # (AUTO) 0.5 K/uL (0.0-1.0); MONOCYTES % (AUTO) 11.9 % (1.7-9.3); NEUTROPHILS # (AUTO) 2.6 K/uL (1.8-7.7); NEUTROPHILS % (AUTO) 61.9 % (40.0-70.0); PLATELET COUNT (AUTO) 323 K/uL (130-430); RED BLOOD CELL COUNT(AUTO) 3.36 MIL/uL (4.2-6.2); RED CELL DISTRIBUTION WIDTH 15.4 % (9.0-15.0); WHITE BLOOD COUNT (AUTO) 4.2 K/uL (4.8-10.8)
[2019-04-18 08:00] VITALS: BP_SYST 132
[2019-04-18 08:00] LABS: ALANINE AMINOTRANSFERASE 50 U/L (12-78); ALBUMIN 2.5 g/dL (3.4-4.8); ANION GAP 5 (5-15); ASPARTATE AMINOTRANSFERASE 24 U/L (10-37); CALCIUM 8.4 mg/dL (8.4-11.0); CHLORIDE 97 mmol/L (98-107); CREATININE 0.66 mg/dL (0.55-1.30); GLUCOSE 98 mg/dL (70-99); POTASSIUM 3.6 mmol/L (3.5-5.1); SODIUM SERUM 132 mmol/L (136-145); TOTAL BILIRUBIN 0.7 mg/dL (0.0-1.0); UREA NITROGEN, BLOOD 9 mg/dL (8-21)
[2019-04-18] MEDS: LACTULOSE 20 GM/30 ML UDC PO SCH (09:00)
--- NOTE | 2019-04-18 09:15 | NUR ---
Medications All morning medications given as ordered. No adverse side effects noted.
[2019-04-18] MEDS: PANTOPRAZOLE SODIUM 40 MG TAB PO SCH (09:25)
[2019-04-18] MEDS: cefTRIAXone 1 GM in D5W 50 ML IV SCH (09:25)
[2019-04-18] MEDS: ASPIRIN 81 MG TAB.CHEW PO SCH (09:26)
[2019-04-18] MEDS: ENOXAPARIN SODIUM 80 MG/0.8 ML SYRINGE SUBCUT SCH (09:35)
[2019-04-18 11:20] VITALS: BP_SYST 136
--- NOTE | 2019-04-18 11:30 | NUR ---
Bowel movement Offered patient bed raymond for urine sample. Patient noted with bowel movement, unable to get urine sample. Skin care provided. Linens changed, no other needs at this time.
--- NOTE | 2019-04-18 13:00 | NUR ---
UA Urine sample taken via straight cath. Urine sample collected and sent to lab. Skin care provided. patient in stable condition.
[2019-04-18 13:58] LABS: BILIRUBIN,URINE NEGATIVE (NEGATIVE); BLOOD, URINE NEGATIVE (NEGATIVE); COLOR,URINE YELLOW (YELLOW); GLUCOSE,URINE NEGATIVE (NEGATIVE); KETONES,URINE NEGATIVE (NEGATIVE); NITRITE, URINE NEGATIVE (NEGATIVE); PROTEIN URINE NEGATIVE (NEGATIVE)
[2019-04-18 14:09] LABS: CLARITY/URINE HAZY (CLEAR); LEUKOCYTE ESTERASE ,URINE 2+ (NEGATIVE)
[2019-04-18 14:10] LABS: RBC,URINE NONE SEEN /HPF (0-3)
[2019-04-18 14:11] LABS: BACTERIA,URINE FEW /HPF (None Seen); MUCUS,URINE None Seen /LPF (None Seen); WBC,URINE 20-50 /HPF (0-3)
--- NOTE | 2019-04-18 14:40 | NUR ---
Rounds Patient resting in bed at this time, no complaints of pain. IV patent, and intact. No infiltration noted. Patient noted with incontinence of urine. linens changed, skin care provided.
[2019-04-18 15:42] VITALS: BP_SYST 139
--- NOTE | 2019-04-18 16:17 | NUR ---
Rounds patient resting in bed at this time, noted with incontinence of urine. Skin care provided, linens changed. No other needs at this time.
[2019-04-18] MEDS: RIVAROXABAN 15 MG TABLET PO SCH (17:42)
--- NOTE | 2019-04-18 18:01 | NUR ---
closing note patient sitting up in bed at this time, eating dinner. visitor at bedside. no complaints of pain. IV patent, and intact, no infiltration noted. No SOB. left leg kept elevated using pillows. On safety and aspiration precautions, HOB kept elevated, 3 side rails up, call light within reach, bed alarm on. Patient in stable condition. All needs met.
[2019-04-18] MEDS: LATANOPROST 2.5 ML DROPS (XALATAN) OP SCH (21:57)
[2019-04-18] MEDS: ATORVASTATIN 20 MG TABLET PO SCH (21:57)
[2019-04-18 23:27] VITALS: BP_SYST 135
[2019-04-19 01:13] VITALS: BP_SYST 134
[2019-04-19 08:00] VITALS: BP_SYST 119
--- NOTE | 2019-04-19 08:00 | NUR ---
NOTE Pt sitting up in bed eating her breakfast. No SOB/resp distress or pain/discomfort noted at this time. Pt's IV in left forearm intact and patent infusing IVF's well. No needs noted at this time. Call light within reach.
[2019-04-19 08:05] LABS: ALANINE AMINOTRANSFERASE 71 U/L (12-78); ALBUMIN 2.7 g/dL (3.4-4.8); ANION GAP 4 (5-15); ASPARTATE AMINOTRANSFERASE 47 U/L (10-37); CALCIUM 8.8 mg/dL (8.4-11.0); CHLORIDE 101 mmol/L (98-107); CREATININE 0.69 mg/dL (0.55-1.30); GLUCOSE 98 mg/dL (70-99); SODIUM SERUM 133 mmol/L (136-145); TOTAL BILIRUBIN 0.6 mg/dL (0.0-1.0); UREA NITROGEN, BLOOD 8 mg/dL (8-21)
[2019-04-19] MEDS: cefTRIAXone 1 GM in D5W 50 ML IV SCH (08:38)
[2019-04-19] MEDS: ASPIRIN 81 MG TAB.CHEW PO SCH (08:40)
[2019-04-19] MEDS: PANTOPRAZOLE SODIUM 40 MG TAB PO SCH (08:40)
[2019-04-19] MEDS: LACTULOSE 20 GM/30 ML UDC PO SCH (08:40)
[2019-04-19 08:42] LABS: BASOPHILS # (AUTO) 0.1 K/uL (0.0-0.2); BASOPHILS % (AUTO) 1.4 % (0.0-2.0); EOSINOPHILS # (AUTO) 0.1 K/uL (0.0-0.4); EOSINOPHILS % (AUTO) 1.8 % (0.0-4.0); HEMATOCRIT 35.7 % (36-48); HEMOGLOBIN 12.1 g/dL (12.0-16.0); LYMPHOCYTES % (AUTO) 24.7 % (20.5-51.5); MEAN CORPUSCULAR HEMOGLOBIN 33 pg (27-31); MEAN CORPUSCULAR HGB CONC 34 % (32-36); MEAN CORPUSCULAR VOLUME 97 fL (79.0-98.0); MONOCYTES # (AUTO) 0.5 K/uL (0.0-1.0); MONOCYTES % (AUTO) 13.1 % (1.7-9.3); NEUTROPHILS # (AUTO) 2.3 K/uL (1.8-7.7); PLATELET COUNT (AUTO) 357 K/uL (130-430); RED BLOOD CELL COUNT(AUTO) 3.69 MIL/uL (4.2-6.2); RED CELL DISTRIBUTION WIDTH 15.6 % (9.0-15.0)
--- NOTE | 2019-04-19 10:05 | NUR ---
CONSULTATION PAGED REASON FOR CONSULTATION:CONFUSION WAS CONSULT CALLED?Y PERSON WHO WAS NOTIFIED:LOTTIE CONSULTING PHYSICIAN:DUANE GAVIN SIGNAL MANAGER SPECIALTY:NEURO SIGNAL MANAGER PHONE NUMBER:[phone] REQUESTING PHYSICIAN:RAFAEL SANDERS
--- NOTE | 2019-04-19 10:30 | NUR ---
Note Dr Reagan at bedside and for CT head/brain w/o contrast ordered at 1010am. Pt at this time taken down to CT dept for scan of head/brain, IVF's saline locked.
[2019-04-19 11:21] VITALS: BP_SYST 129
--- NOTE | 2019-04-19 14:00 | NUR ---
Note Pt back in room after CT scan at 11am. Dr Rosenberg (neuro) came to pt's bedside for assessment. Pt resting in bed and denies any needs at this time. Call light within reach.
[2019-04-19 15:40] VITALS: BP_SYST 122
[2019-04-19] MEDS: RIVAROXABAN 15 MG TABLET PO SCH (17:20)
--- NOTE | 2019-04-19 18:50 | NUR ---
Note Pt's son at bedside visiting, instructed to take pt's [place] ID home at this time. Pt denies any SOB/resp distress or pain/discomfort noted at this time. Pt was checked on q1' and PRN all shift for needs and care. IV in left forearm intact and patent at this time. heels were elevated on pillow at this time. Pt denies any needs at this time. Call light within reach.
--- NOTE | 2019-04-19 19:15 | NUR ---
OPENING NOTES Receive report from morning shift nurse. Patient AOx2, forgetfulness and confusion is noted. Patient has no signs of respiratory distress noted. HOB slightly elevated. Denies pain and discomfort at this time. IV site, patency noted. Call light within reach. Safety precautions in place. Bed alarm on. Heels elevated with pillow. Will continue to monitor patient.
[2019-04-19 20:05] VITALS: BP_SYST 128
[2019-04-19] MEDS: ATORVASTATIN 20 MG TABLET PO SCH (21:04)
[2019-04-19] MEDS: LATANOPROST 2.5 ML DROPS (XALATAN) OP SCH (21:04)
--- NOTE | 2019-04-19 21:04 | NUR ---
MED PASS Due medication given at this time. Patient tolerated well. Patient has no signs of respiratory distress and discomfort noted. Safety precautions in place. Bed alarm on. Will continue to monitor patient.
--- NOTE | 2019-04-19 23:38 | NUR ---
RN ROUNDS Patient awake, watching TV. Patient denies pain and discomfort. No signs of respiratory distress noted. Repositioned Q2H for comfort. Safety precautions in place. Will continue to monitor patient.
[2019-04-20] VITALS: BP_SYST 128
--- NOTE | 2019-04-20 02:14 | NUR ---
RN ROUNDS Patient asleep at this time. No signs of respiratory distress and discomfort noted. Breathing even and unlabored. Safety precautions in place. Call light within reach, Will continue to monitor patient.
--- NOTE | 2019-04-20 06:40 | NUR ---
PERICARE/CLOSING NOTES Patient is awake AOX2, watching TV, no signs of respiratory distress noted. Patient denies pain and discomfort at this time. Pericare done at this time, patient tolerated well. IV site patency noted. Heels floated using pillow. Safety precautions in place. Bed alarm on. Call light within reach. All needs met throughout the shift. Will continue to monitor until endorsed to oncoming shift nurse.
[2019-04-20 08:00] VITALS: BP_SYST 141
--- NOTE | 2019-04-20 08:00 | NUR ---
Note Pt sitting up in bed eating her breakfast. No SOB/resp distress or pain/discomfort noted a this time. IV in left forearm intact and patent at this time. No needs noted at this time. Call light within reach.
[2019-04-20] MEDS: ASPIRIN 81 MG TAB.CHEW PO SCH (08:19)
[2019-04-20] MEDS: cefTRIAXone 1 GM in D5W 50 ML IV SCH (08:19)
[2019-04-20] MEDS: LACTULOSE 20 GM/30 ML UDC PO SCH (08:19)
[2019-04-20] MEDS: PANTOPRAZOLE SODIUM 40 MG TAB PO SCH (08:19)
--- NOTE | 2019-04-20 09:00 | NUR ---
Note Dr Reagan on the floor and assessment completed at this time. Call light within reach.
[2019-04-20 11:14] VITALS: BP_SYST 146
--- NOTE | 2019-04-20 12:25 | NUR ---
Note Pt resting in bed and now assisted sitting up in bed for lunch at this time. Pt denies any needs at this time. Call light within reach.
[2019-04-20 15:38] VITALS: BP_SYST 135
--- NOTE | 2019-04-20 16:30 | NUR ---
Note Pt was notified that there is an order for transfer to SNF when bed is available. Pt denies any needs noted at this time. Call light within reach
--- NOTE | 2019-04-20 16:43 | NUR ---
Dietitian Recommendations * Recommend cardiac diet w/ Ensure Enlive BID (ONS provides 700 kcal/day, 40 gm protein/day) * Encourage increase PO intakes LP, RD Please refer to Nutrition Assessment for details. Addendum: 04/20/19 at [address] Amended: Links added.
[2019-04-20 16:45] VITALS: BP_SYST 146
[2019-04-20] MEDS: RIVAROXABAN 15 MG TABLET PO SCH (18:18)
--- NOTE | 2019-04-20 18:55 | NUR ---
Note Pt's son came up to nurses' station and verified that pt will possibly be transferred on Friday/ as bed is available. Pt was checked on q1' and PRN all shift for needs and care. No SOB/resp distress or pain/discomfort was noted all shift. Pt sitting up for dinner, denies any needs at this time. IV in left forearm intact and patent. Call light within reach.
--- NOTE | 2019-04-20 19:10 | NUR ---
OPENING NOTES/REFUSED FLU VACCINE Receive report from morning shift nurse. Patient AOx2, Son at bedside. Patient has no signs of respiratory distress noted. HOB slightly elevated. Patient was aske for flu vaccine, patient refused flu vaccine, son agreed. Patient and son was educated on purpose and benefits of flu vaccine, still refused at this time. Patient denies pain and discomfort at this time. IV site, patency noted. Call light within reach. Safety precautions in place. Bed alarm on. Heels elevated with pillow. Will continue to monitor patient.
[2019-04-20] MEDS: ATORVASTATIN 20 MG TABLET PO SCH (23:07)
[2019-04-20] MEDS: LATANOPROST 2.5 ML DROPS (XALATAN) OP SCH (23:07)
--- NOTE | 2019-04-20 23:07 | NUR ---
MED PASS/PERICARE Due medication given at this time. Patient tolerated well. Patient has no signs of respiratory distress and discomfort noted. Pericare done with help of Rafael OSBORN. Safety precautions in place. Bed alarm on. Will continue to monitor patient.
[2019-04-21 01:32] VITALS: BP_SYST 129
--- NOTE | 2019-04-21 03:55 | NUR ---
RN ROUNDS Patient asleep at this time. No signs of respiratory distress and discomfort noted. Breathing even and unlabored. Safety precautions in place. Call light within reach. Will continue to monitor patient.
--- NOTE | 2019-04-21 06:24 | NUR ---
CLOSING NOTES Patient is asleep at this time, no signs of respiratory distress and discomfort noted at this time. IV site patency noted. Heels floated using pillow. Safety precautions in place. Bed alarm on. Call light within reach. All needs met throughout the shift. Will continue to monitor until endorsed to oncoming shift nurse.
--- NOTE | 2019-04-21 07:30 | NUR ---
AM rounds: Patient is awake, oriented. Denies pain. On contact isolation for MRSA of nares. Bilateral heels off loaded with pillows. Call light within reach.
[2019-04-21 08:09] VITALS: BP_SYST 139
[2019-04-21] MEDS: ASPIRIN 81 MG TAB.CHEW PO SCH (08:12)
[2019-04-21] MEDS: PANTOPRAZOLE SODIUM 40 MG TAB PO SCH (08:12)
[2019-04-21] MEDS: LACTULOSE 20 GM/30 ML UDC PO SCH (08:13)
[2019-04-21] MEDS: cefTRIAXone 1 GM in D5W 50 ML IV SCH (08:13)
--- NOTE | 2019-04-21 11:00 | NUR ---
Rounds: Patient's son Kamron at bedside. NO questions and concerns at this time. Patient is comfortable.
[2019-04-21 11:13] VITALS: BP_SYST 138
[2019-04-21] MEDS ORDERED: RIVA15TA PO (11:45)
--- NOTE | 2019-04-21 13:44 | NUR ---
CONVENTIONAL MACHINIST HCP AFTER HOURS ATTEMPTED TO CALL TO FOLLOW UP PLACEMENT FOR PATIENT TO SNF. ON MULTIPLE ATTEMPTS, CALLS ARE BEING HUNGED UP ON
[2019-04-21 14:59] VITALS: BP_SYST 106
--- NOTE | 2019-04-21 15:00 | NUR ---
Rounds: Patient is resting. No discomfort at this time.
[2019-04-21] MEDS: RIVAROXABAN 15 MG TABLET PO SCH (17:19)
--- NOTE | 2019-04-21 18:12 | NUR ---
End of shift: Needs attended. No change in assessment.
--- NOTE | 2019-04-21 19:10 | NUR ---
OPENING NOTES Receive report from morning shift nurse MELANIE Prakash. Patient has no signs of respiratory distress noted. HOB slightly elevated. PPatient denies pain and discomfort at this time. IV site, patency noted. Call light within reach. Safety precautions in place. Bed locked and lowest position. Bed alarm on. Heels elevated with pillow. Will continue to monitor patient.
[2019-04-21 19:54] VITALS: BP_SYST 139
[2019-04-21] MEDS: LATANOPROST 2.5 ML DROPS (XALATAN) OP SCH (21:29)
[2019-04-21] MEDS: ATORVASTATIN 20 MG TABLET PO SCH (21:29)
[2019-04-21 21:40] VITALS: BP_SYST 130
[2019-04-22 00:25] VITALS: BP_SYST 114
--- NOTE | 2019-04-22 06:47 | NUR ---
CLOSING NOTES Patient is awake watching TV, no signs of respiratory distress and discomfort noted at this time. IV site patency noted. Heels floated using pillow. Safety precautions in place. Bed alarm on. Call light within reach. All needs met throughout the shift. Will continue to monitor until endorsed to oncoming shift nurse.
[2019-04-22 08:06] VITALS: BP_SYST 129
[2019-04-22] MEDS: LACTULOSE 20 GM/30 ML UDC PO SCH (09:38)
[2019-04-22] MEDS: cefTRIAXone 1 GM in D5W 50 ML IV SCH (09:38)
[2019-04-22] MEDS: PANTOPRAZOLE SODIUM 40 MG TAB PO SCH (09:38)
[2019-04-22] MEDS: ASPIRIN 81 MG TAB.CHEW PO SCH (09:38)
[2019-04-22] MEDS ORDERED: LINEZOLID 300 ML IV ONE (11:00)
--- NOTE | 2019-04-22 11:47 | NUR ---
PATIENT WALKED W/ P.T. JILL FROM BED DOOR AND BACK. PT C/O OF PAIN AND WAS GIVEN PAIN MED AFTER. IV ZYVOX GIVEN.
--- NOTE | 2019-04-22 11:50 | NUR ---
PER P.T. PT IS MAX ASSIST OOB/AMBULATION
[2019-04-22 12:00] VITALS: BP_SYST 108
[2019-04-22 17:09] VITALS: BP_SYST 107
[2019-04-22] MEDS: RIVAROXABAN 15 MG TABLET PO SCH (17:25)
--- NOTE | 2019-04-22 19:00 | NUR ---
CLOSING NOTES, PT HAS BEEN STABLE THE WHOLE SHIFT, GIVEN ABX, PAIN MEDICATIONS REQUESTED, PT AMBULATED WITH P.T. BUT IS TOTAL ASSIST WITH OOB AND AMBULATION. ENDORSED TO NIGHT NURSE.
[2019-04-22 20:00] VITALS: BP_SYST 125
[2019-04-22] MEDS: LATANOPROST 2.5 ML DROPS (XALATAN) OP SCH (20:42)
[2019-04-22] MEDS: ATORVASTATIN 20 MG TABLET PO SCH (20:43)
[2019-04-22] MEDS: LINEZOLID 300 ML IV SCH (20:47)
[2019-04-23 00:06] VITALS: BP_SYST 107
--- NOTE | 2019-04-23 07:30 | NUR ---
closing notes Patient is resting, no signs of acute respiratory distress obesrved. IV site patent, dressings c/d/i. Call light wtihin reach, bed alarm on, bed at lowest position. All needs met throughout shift. Will endorse care to oncoming shift.
[2019-04-23] MEDS: cefTRIAXone 1 GM in D5W 50 ML IV SCH (09:00)
[2019-04-23] MEDS: PANTOPRAZOLE SODIUM 40 MG TAB PO SCH (09:00)
[2019-04-23] MEDS: LINEZOLID 300 ML IV SCH ×2 (09:00→21:24)
[2019-04-23] MEDS: LACTULOSE 20 GM/30 ML UDC PO SCH (09:00)
[2019-04-23] MEDS: ASPIRIN 81 MG TAB.CHEW PO SCH (09:00)
[2019-04-23 10:45] VITALS: BP_SYST 107
[2019-04-23 11:11] VITALS: BP_SYST 118
--- NOTE | 2019-04-23 14:21 | NUR ---
DC Planning: Assisting Antonella,director to speak with pt for dcp to [facility]. >> The pt lives at [facility] on second level. She was independly able to walk with cane and FWW. The pt came to ER complaining of left leg swelling and pain. She has h/o CVA and tremor and weakness associated with her deep venous thrombosis on the left leg. >> CM informed pt the dcp to [place] for IV abx for UTI and DVT management. The pt agreed with the transfer to [facility]. reuben Valenzuela made aware, she agreed with the POC and transfer [facility]. --Antonella made aware. Addendum: 04/23/19 at 1442 by Bibi Bey RN Error entryPlease disregard the above info.-- RASHARD NAVARRO /REINA
--- NOTE | 2019-04-23 14:42 | NUR ---
DC Planning: Assisting Antonella,director to speak with pt for dcp to [facility]. >> CM informed pt the dcp to [place] for IV abx for VRE of Urine and DVT management. The pt agreed with the transfer to [facility]. >> Informed son/Kamron Dhaliwal # [phone]. He agreed with the POC and to transfer to [facility] possible today.
[2019-04-23 16:12] VITALS: BP_SYST 131
--- NOTE | 2019-04-23 18:13 | NUR ---
Nutrition F/U RD reviewed pt's current EMR record including diet Hx, physician notes, nursing notes, pertinent labs/meds/procedures, care trends, and care activity. Admission Dx: DVT PMH: CVA, HTN per physician notes Current Diet Order/Nutrition Support: Cardiac w/ Ensure Enlive BID x2 days Subjective Info: Pt seen resting in bed, reported she has been eating fine. Per EMR records, PO intakes indicate 38% average x7 meals. RD encouraged pt to continue to increase PO intakes for adequate nutrition. Pt stated she is enjoying chocolate-flavored Ensure Enlive ONS. Per physician notes, awaiting placement. Estimated Energy Expenditure (kcals/day) 3240-8149 kcal/day (25-30 kcal/kg CBW for geriatric maintenance) Estimated Protein Required (g/day) 69-83 gm/day (1-1.2 gm/kg CBW for geriatric maintenance) Estimated Fluid Required (l/day) 1.8-2 L/day (1 ml/kcal/day for maintenance) Problem/Etiology/Signs/Symptoms Inadequate nutritional intakes related to lack of appetite as evidenced by poor PO intake records. *ongoing Expected Outcomes/Goals - Monitor appetite and PO intakes w/ goal of pt meeting at least 75% of estimated nutritional needs, labs trending WNL, normal GI function, and skin integrity/wt maintenance Dietitian Recommendations * Recommend continuing cardiac diet w/ Ensure Enlive BID (ONS provides 700 kcal/day, 40 gm protein/day) * Encourage increase PO intakes Follow Up High Risk: F/U in 2-3 days
--- NOTE | 2019-04-23 18:15 | NUR ---
Dietitian Recommendations * Recommend continuing cardiac diet w/ Ensure Enlive BID (ONS provides 700 kcal/day, 40 gm protein/day) * Encourage increase PO intakes LP, RD Please refer to Nutrition F/U for details.
--- NOTE | 2019-04-23 19:10 | NUR ---
OPENING NOTES Late entry due to patient care. Bedside report received from dayshift nurse. Patient received lying in bed, awake, watching TV, confused. No s/s of acute distress noted. Breathing is even and unlabored. HOB raised. IV site is patent, no signs of infiltration or infection noted. Call light with patient. Bed alarm on. Bed is locked and at lowest position. Will continue to monitor.
[2019-04-23] MEDS: RIVAROXABAN 15 MG TABLET PO SCH (19:42)
[2019-04-23 20:00] VITALS: BP_SYST 125
--- NOTE | 2019-04-23 21:00 | NUR ---
INCONTINENT CARE Incontinent care done by RN at this time. Patient tolerated well. All needs met at this time. Call light with patient. Bed alarm on. Will continue to monitor.
[2019-04-23] MEDS: LATANOPROST 2.5 ML DROPS (XALATAN) OP SCH (21:24)
[2019-04-23] MEDS: ATORVASTATIN 20 MG TABLET PO SCH (21:24)
--- NOTE | 2019-04-23 23:00 | NUR ---
ROUNDS Patient in bed, watching TV, no s/s of acute distress noted. Breathing is even and unlabored. HOB raised. Call light with patient. Bed alarm on. Will continue to monitor.
[2019-04-24] VITALS: BP_SYST 118
--- NOTE | 2019-04-24 02:10 | NUR ---
TRANSFER OF CARE Report given to Analia Ng RN. Patient in bed, eyes closed, sleeping. No s/s of acute distress noted. Breathing is even and unlabored. HOB raised. All needs met. Call light with patient. Bed alarm on. Bed is locked and at lowest position.
--- NOTE | 2019-04-24 07:45 | NUR ---
Skin care/comfort Patient awake /alert oriented to herself watching TV very pleasant , perineal care given soak with urine sacral area no redness kept dry/clean skin cream barrier applied , HOB high fowlers ready for breakfast , needs attended.
[2019-04-24 07:50] VITALS: BP_SYST 122
[2019-04-24] MEDS: ASPIRIN 81 MG TAB.CHEW PO SCH (08:06)
[2019-04-24] MEDS: LACTULOSE 20 GM/30 ML UDC PO SCH (08:06)
[2019-04-24] MEDS: PANTOPRAZOLE SODIUM 40 MG TAB PO SCH (08:06)
[2019-04-24] MEDS: LINEZOLID 300 ML IV SCH (08:06)
--- NOTE | 2019-04-24 11:05 | NUR ---
PATIENT RESTING: Patient resting quietly. No acute distress noted. Vital signs within normal range.
[2019-04-24 11:15] VITALS: BP_SYST 110
--- NOTE | 2019-04-24 12:26 | NUR ---
Seen and examined by Dr. MAYES, awaiting for placement.
--- NOTE | 2019-04-24 13:08 | NUR ---
Patient repositioned by staff every 2 hours with pillow support.
[2019-04-24 15:40] VITALS: BP_SYST 121
--- NOTE | 2019-04-24 15:43 | NUR ---
SNF transfer orders: Still looking for accepting SNF for VRE urine isolation bed. [facility] interested and may have a bed, they are waiting on clinicals to be manually fax for review. Spoke with Jacquelin Lieutenant Governor to fax clinicals to [facility] at [phone]. Will follow up. Val Gordon LVN HCP Lead Teller [phone]
--- NOTE | 2019-04-24 16:38 | NUR ---
SNF iso bed availability: [facility] - Room [address] [place] [address] [facility] 1 ambulance willpick up at 6:30pm Dr. Murphy and nurse Sherri made aware. Val Gordon LVN HCP [employer] Member [phone]
--- NOTE | 2019-04-24 16:54 | NUR ---
Spoke to Madhuri Lundy son of the patient phone no. [phone], informed regarding the transfer to [facility] in [address] [place] [address], picking supervisor time 6:30 pm by Medic 1, NO bed available in [place] and agreed for the transfer.
[2019-04-24 17:00] VITALS: BP_SYST 133
--- NOTE | 2019-04-24 17:00 | NUR ---
Report given to nursing communications and signals supervisor Nedra of [facility] with all the information including isolation and accepted , orange picker time 1830 hour.
[2019-04-24 17:13] VITALS: BP_SYST 133
[2019-04-24] MEDS: RIVAROXABAN 15 MG TABLET PO SCH (17:26)
--- NOTE | 2019-04-24 19:00 | NUR ---
To [facility] via ambulance endorsed patient to dandy operator , son Kamron Dhaliwal at the bedside during transfer.
--- NOTE | 2019-05-03 14:19 | NUR ---
PHYSICAL THERAPY CO-SIGN The Physical Therapy Progress Notes documented by Toll Service Observer have been reviewed. Reviewed/Co-Signed by: Dandre Mccabe PT Documentation Done by: LARA CATALAN PTA Addendum: 05/03/19 at 1421 by Dandre Mccabe PT Amended: Links added.
--- NOTE | 2019-05-03 14:20 | NUR ---
PHYSICAL THERAPY CO-SIGN The Physical Therapy Progress Notes documented by Switchboard Mechanic have been reviewed. Reviewed/Co-Signed by: Dandre Mccabe PT Documentation Done by: LARA CATALAN PTA Addendum: 05/03/19 at 1421 by Dandre Mccabe PT Amended: Links added.
== END 2019-04-24 19:00 | DRG 299 ==
LOC: SED 14:45 → SMU 18:36
PROVIDERS: ADMIT Internal Medicine Hospice and Palliative Medicine; ATTEND Internal Medicine Hospice and Palliative Medicine
DX: I82.402 Acute embolism and thrombosis of unspecified deep veins of left lower extremity (principal); E43 Unspecified severe protein-calorie malnutrition; E87.1 Hypo-osmolality and hyponatremia; N39.0 Urinary tract infection, site not specified; Z16.21 Resistance to vancomycin; Z16.39 Resistance to other specified antimicrobial drug; E87.6 Hypokalemia; B95.2 Enterococcus as the cause of diseases classified elsewhere; E78.00 Pure hypercholesterolemia, unspecified; I10 Essential (primary) hypertension; G25.0 Essential tremor; K21.9 Gastro-esophageal reflux disease without esophagitis; Z74.01 Bed confinement status; Z79.01 Long term (current) use of anticoagulants; Z86.73 Personal history of transient ischemic attack (TIA), and cerebral infarction without residual deficits; Z22.322 Carrier or suspected carrier of Methicillin resistant Staphylococcus aureus; Z68.23 Body mass index [BMI] 23.0-23.9, adult; Z79.899 Other long term (current) drug therapy
CPT/HCPCS: 36415; 70450-TC; 71045; 80053; 81000-TC; 82550-TC; 83605; 84484; 85025; 85610-TC; 85730-TC; 87081; 87086; 87186-TC; 93005; 93971; 96372; 97110-GP; 97530-GP; 99285; J0696; J1650; J2020; J7060